=== PATIENT | male | born 1965 | race Caucasian/White ===

== ENCOUNTER 2018-05-29 19:56 | Emergency (ER) | payer OTHER ==
[~2018-05-29] VITALS: Ht 175.3 cm; Wt 72.1 kg
[2018-05-29] MEDS ORDERED: NORFLEX IM STA (20:31)
[2018-05-29] MEDS ORDERED: TORADOL IM STA (20:31)
[2018-05-29] MEDS ORDERED: NORFLEX ONE (20:33)
[2018-05-29] MEDS ORDERED: TORADOL ONE (20:34)
--- NOTE | 2018-05-29 20:37 | ER.PDOC ---
General Chief Complaint: Neck/Upper back Pain Stated Complaint: NECK PAIN Time seen by MD: 20:34 Source: patient Exam Limitations: no limitations History of Present Illness Initial Comments Neck pain with spasms for 2 days. Patient has been painting for the past 2 days. Has had similar experiences in the past. Severity/Quality: moderate Method of Injury: bending Associated Symptoms: muscle spasms Past Medical History Surgical History: hip, knee Social History Smoking: cigarettes, less than 1 pack/day Alcohol Use: none Drug Use: marijuana Review of Systems Constitutional: no symptoms reported EENTM: no symptoms reported Respiratory: no symptoms reported Cardiovascular: no symptoms reported Gastrointestinal: no symptoms reported Musculoskeletal: see HPI All Other Systems: Reviewed and Negative Physical Exam General Appearance: No Apparent Distress, WD/WN HEENT: PERRL/EOMI Neck: Muscle Spasm, Painful Range of Motion, Paraspinous Muscle Tender Cardiovascular/Respiratory: Regular Rate, Rhythm, No M/R/G, Normal Peripheral Pulses, No JVD, Normal Breath Sounds, No Respiratory Distress Gastrointestinal: Normal Bowel Sounds, No Organomegaly, No Pulsatile Mass, Non Tender, Soft Back: Normal Inspection, No CVA Tenderness, No Vertebral Tenderness Extremities: No Evidence of Injury, Normal Range of Motion, Non-Tender, No Pedal Edema, Pelvis Stable, Other (left AKA) Neuro/Psych: Alert, physician chief of pathology nml/symmetrical, mood/effect nml, No Motor/Sensory Deficits, Relexes nml Skin: Normal Color, Warm/Dry Results/Orders Results/Orders Administered Medications Medications (Trade) Dose Ordered Sig/Sushant Route PRN Reason Start Time Stop Time Status Last Admin Dose Admin Ketorolac Tromethamine (Toradol) 60 mg STAT STAT IM 05/29/18 20:31 05/29/18 20:33 DC 05/29/18 20:42 Orphenadrine Citrate (Norflex) 60 mg STAT STAT IM 05/29/18 20:31 05/29/18 20:33 DC 05/29/18 20:42 Progress Progress Patient feels better after the Toradol shot. EKG/XRAY/CT/US CT Comments: Degenerative changes of the cervical spine. No evidence of fracture Departure Time of Disposition: 22:16 Disposition: 01 HOME, SELF-CARE Impression: Primary Impression: Neck pain Additional Impression: Acute myofascial strain Condition: Improved Referrals: PCP,UNKNOWN (PCP) PRIMARY CARE PROVIDER Additional Instructions: Tramadol Flexeril Ibuprofen F/U with your PCP in 2-3 days Duration or Time Spent with Pa: 60 mins Problem Qualifiers ARASELI DEE MD May 29, 2018 20:37
--- NOTE | 2018-05-29 21:59 | DIREP ---
PROCEDURE: CT SPINE CERVICAL W/O COMPARISON:None. INDICATIONS:Pain FINDINGS: ALIGNMENT:Mild reversal of the normal cervical lordosis. VERTEBRAE:No evidence of fracture. Mild ventral spondylosis of the midcervical spine. PARASPINAL AREA:Normal. OTHER:No additional findings. CERVICAL DISC LEVELS C2-C3:Normal. C3-C4:Normal. C4-C5:Early degenerative disc disease. Mild uncovertebral hypertrophy and facet arthropathy. C5-C6:Early degenerative disc disease. Mild uncovertebral hypertrophy and facet arthropathy. C6-C7:Early degenerative disc disease. Mild uncovertebral hypertrophy and facet arthropathy. C7-T1:Normal. CONCLUSION: Degenerative changes of the cervical spine. No evidence of fracture Dictated by: Marcie Elias M.D. on 05/29/2018 at 09:55 PM
[2018-05-29 22:29] VITALS: BP 165/92
--- NOTE | 2018-05-31 08:56 | NUR ---
UPDATE THIS NURSE FOUND DISCHARGE PACKET WITH PRESCRIPTION (TRAMADOL 50MG AND FLEXERIL 10MG) ON DESK. ATTEMPTED TO CONTACT PATIENT BUT PHONE # WAS DISCONNECTED.
== END 2018-05-29 22:26 | disposition home or self-care (01) ==
LOC: ER 19:56
DX: S16.1XXA Strain of muscle, fascia and tendon at neck level, initial encounter (principal); F12.10 Cannabis abuse, uncomplicated; F17.210 Nicotine dependence, cigarettes, uncomplicated; X50.9XXA Other and unspecified overexertion or strenuous movements or postures, initial encounter; Y93.89 Activity, other specified; Y92.89 Other specified places as the place of occurrence of the external cause; Y99.8 Other external cause status
CPT/HCPCS: 72125; 96372; 99284; J1885; J2360